=== PATIENT | female | born 1965 | race African-American/Black ===

== ENCOUNTER 2018-08-13 00:06 | Emergency (ER) | payer OTHER ==
[~2018-08-13] VITALS: Ht 157.5 cm; Wt 90.3 kg
[~2018-08-13 00:06] MED LIST: COZAAR 25 MG TA25 M2 PO; NORVASC5 MG PO; PREDNISONE 20 M20 MG PO; PROAIR HFA8.5 GM INH; TESSALON PERLE100 MG PO; ZPAK PO
[2018-08-13 02:13] VITALS: BP 139/80
== END 2018-08-13 02:15 | disposition home or self-care (01) ==
LOC: ER 00:06
DX: M54.31 Sciatica, right side (principal); M54.2 Cervicalgia; I10 Essential (primary) hypertension; V89.2XXA Person injured in unspecified motor-vehicle accident, traffic, initial encounter; Y92.89 Other specified places as the place of occurrence of the external cause; Y93.89 Activity, other specified; Y99.8 Other external cause status

== ENCOUNTER 2018-08-21 13:08 | Emergency (ER) | payer OTHER ==
[~2018-08-21] VITALS: Ht 157.5 cm; Wt 90.7 kg
[2018-08-21 13:15] VITALS: BP 148/81
[2018-08-21] MEDS ORDERED: NORFLEX100 MG PO (13:39)
[2018-08-21] MEDS ORDERED: TRAMADOL 50 MG50 MG PO (13:39)
== END 2018-08-21 14:00 | disposition home or self-care (01) ==
LOC: ER 13:08
DX: S29.012A Strain of muscle and tendon of back wall of thorax, initial encounter (principal); I10 Essential (primary) hypertension; V89.2XXA Person injured in unspecified motor-vehicle accident, traffic, initial encounter; Y93.89 Activity, other specified; Y92.89 Other specified places as the place of occurrence of the external cause; Y99.8 Other external cause status